=== PATIENT | female | born 1960 | race Caucasian/White ===

== ENCOUNTER → 2020-10-16 13:41 | Outpatient (BNVA) | payer OTHER, SELFPAY | PROVIDERS: PCP Internal Medicine; Referring Provider Internal Medicine; Visit Provider Nurse Practitioner Family | DX: Z12.11 Encounter for screening for malignant neoplasm of colon (principal); D12.6 Benign neoplasm of colon, unspecified | CPT/HCPCS: Q3014 ==

== ENCOUNTER 2020-12-03 07:45 | Outpatient (REF) | payer OTHER, SELFPAY ==
[2020-12-03 11:36] LABS: Alanine Aminotransferase 9 U/L (0-31); Anion Gap 12 (12-20); Aspartate Amino Transferase 15 U/L (5-31); Blood Urea Nitrogen 17 mg/dL (9-16); Calcium 9.3 mg/dL (8.4-10.2); Carbon Dioxide 32 mmol/L (22-29); Chloride 103 mmol/L (96-108); Cholesterol 194 mg/dL; Estimated Glomerular Filt Rate > 60; Glucose Fasting 103 mg/dL (60-99); HDL Cholesterol 49 mg/dL; Hemoglobin 12.3 g/dl (12.0-16.0); LDL Cholesterol Calculated 126 mg/dl; Mean Corpuscular HGB Conc 30.8 g/dl (31.0-35.0); Mean Corpuscular Hemoglobin 27.2 pg (27.0-33.0); Mean Corpuscular Volume 88.3 fL (80-98); Mean Platelet Volume 10.8 fL (9.4-12.3); Platelet Count 219 X10*3/uL (160-400); Potassium 4.7 mmol/L (3.3-5.1); Red Blood Count 4.53 X10*6/uL (4.20-5.50); Red Cell Distribution Width 14.2 % (11.0-16.0); Sodium 142 mmol/L (135-145); Triglycerides 99 mg/dL; White Blood Count 5.3 X10*3/uL (4.8-10.8)
[2020-12-03 11:57] LABS: TSH reflex Free T4 1.47 uIU/mL (0.32-4.0)
== END 2020-12-03 07:46 | disposition home or self-care (01) ==
LOC: HO.HMGCLDS 07:45
PROVIDERS: Nurse Practitioner Family; PCP Internal Medicine; Visit Provider Internal Medicine
DX: E66.01 Morbid (severe) obesity due to excess calories (principal); I10 Essential (primary) hypertension; Z78.0 Asymptomatic menopausal state
CPT/HCPCS: 36415; 80048; 80061; 82306; 84443; 84450; 84460; 85027

== ENCOUNTER 2020-12-16 08:08 | Day surgery (SDC) | payer OTHER, SELFPAY ==
[2020-12-09 13:19] VITALS: BMI 54.8
[2020-12-16 08:23] VITALS: BP 187/69; PULSE 102; RESP 20; TEMP 36.6; O2SAT 96
--- NOTE | 2020-12-16 08:48 | P.CONAN_ITS ---
[facility] Active Problems Active Problems: All Active Problems (Updated 08/22/20 @ 08:39 by Diann dukes MD) Postmenopause (Acute) Breast cancer screening by mammogram (Acute) Tubular adenoma of colon (Acute) Morbid obesity due to excess calories (Acute) Mild intermittent asthma in adult without complication (Acute) Essential hypertension (Acute) Past Medical History Medical History Breast cancer screening by mammogram Essential hypertension Mild intermittent asthma in adult without complication Morbid obesity due to excess calories Postmenopause Tubular adenoma of colon Family History Family History Father HTN (hypertension) Diabetes mellitus Mother HTN (hypertension) Anxiety Depression Breast cancer Brother No problems noted. Daughter No problems noted. Daughter No problems noted. Surgical History Surgical History (Updated 12/09/20 @ 13:09 by Wilma Brunson) H/O colonoscopy History of tonsillectomy History of Problems with Anesthesia: No Social History Social History Alcohol intake: current Alcohol intake frequency: holidays/special occasions only Patient Tobacco Use Status: Former Tobacco user Use of substances other than those prescribed or required for medical reasons: No Are you DNR?: No Advance Directives: No Advance Directives Information Provided: Yes Meds Allergies Allergy/AdvReac Type Severity Reaction Status Date / Time No Known Allergies Allergy Verified 10/16/20 14:13 Home Medications Medication Instructions Recorded Confirmed Last Taken Type albuterol sulfate 90 mcg/actuation 2 puff INHALATION Q6H PRN 08/22/20 12/09/20 Unknown History aerosol inhaler (ProAir HFA) aspirin 81 mg tablet,delayed 81 mg PO DAILY 08/22/20 12/09/20 Unknown History release (Adult Low Dose Aspirin) fexofenadine 180 mg tablet 180 mg PO DAILY 08/22/20 12/09/20 Unknown History (Huyen Allergy) lisinopril 10 mg tablet 10 mg PO DAILY 08/22/20 12/09/20 Unknown History Exam Exam Date and Time: December 16, 2020 0848 Height,Weight and Vital Signs: Height 5 ft 2 in Weight 136.134 kg Last Vital Signs Temp 97.9 F 12/16/20 08:23 Pulse 102 H 12/16/20 08:23 Resp 20 12/16/20 08:23 BP 187/69 H 12/16/20 08:23 Pulse Ox 96 12/16/20 08:23 Airway Mallampati Class: III (Full neck) TM Dist: >3cm Neck ROM: Full Heart: RRR Lungs: CTA Assessment and Plan Assessment Anesthesia Assessment: Anesthesia Plan Discussed and Chart Reviewed Final Anesthetic Review History of Problems with Anesthesia: No NPO: Yes ASA Class: III Final Preanesthetic Review: Meds/Allgs Chart Reviewed, Consent Obtained/Reviewed and Anes Risks/Benef Reviewed Patient Risk: Intermediate Procedure Risk: Low Anesthetic Plan Anesthetic Plan: MAC: Disposition: Standard PACU
--- NOTE | 2020-12-16 10:03 | MHC.SHP ---
Pre-Procedural Eval Section A Date of Service: 12/16/20 Section B Chief Complaint: tubular adenoma of colon, Screening Details of Present Illness: pos FH of cRC and polyps Relevant Family History (Specify if Yes): Yes Relevant Social History: None Present Medications: see Short Stay Collaborative assessment Medical History: Significant History (Breast cancer screening by mammogram Essential hypertension Mild intermittent asthma in adult without complication Morbid obesity due to excess calories Postmenopause Tubular adenoma of colon) History of Previous Operations: Relevant previous surgery/procedure and date(s) (tonsil removal) Allergies: Allergies Allergy/AdvReac Type Severity Reaction Status Date / Time No Known Allergies Allergy Verified 10/16/20 14:13 Review of Systems Sugical H&P ROS: Negative: Constitution, Cardiovascular, Respiratory, Neurological, Psychiatric, Hem-Onc, Allergic/Immunologic, Gastrointestinal, Genitourinary, Musculoskeletal, Integumentary, Endocrine and Eyes/Ears/Nose/Throat Exam Surgical H&P Exam: Normal: HEENT, Normal: Heart, Normal: Lungs, Normal: Extremities, Normal: Abdomen, Normal: Skin and Normal: Neurological Plan Diagnosis/Plan: Unchanged I have reviewed the history and physical and performed a pertinent physical examination on my patient. No changes have occurred unless specified.
--- NOTE | 2020-12-16 10:04 | PM.OP ---
Brief Operative Note Date of Service: 12/16/20 Pre-op diagnosis: hx of polyps Post-op diagnosis: same Procedure: see op note Surgeon: Bang West MD Anesthesia: MAC Was an Pig Casting Machine Operator used for this Procedure?: No Estimated blood loss (mL): 0 Condition: stable Disposition: PACU
--- NOTE | 2020-12-16 10:05 | W.PM.OPN ---
Operative Note Operative Note Date of Service: 12/16/20 Narrative: Operative Information Procedure Description: Colonoscopy COLONOSCOPY Instrument: Olympus variable stiffness adult scope 190L Colonoscopy Monitoring: Vital signs and clinical assessment, continuous EKG monitoring, Pulse oximetry, Carbon Dioxide monitoring and blood pressure monitoring were done throughout the procedure. Colon withdrawal time was 10 minutes. Procedure: The patient was placed in the left lateral decubitis position and pre-procedure medications were administered. After a digital rectal examination of the ano-rectum, the video colonoscope was inserted into the rectum and advanced through the colon to the cecum/TI. The colonoscope was slowly withdrawn in a retrograde panoramic fashion and the colon mucosa was carefully examined including a retroflexed view of the rectum. Findings and interventions are described below. Procedure Difficulty:easy Findings: Terminal Ileum-normal Cecum: 10 mm sessile polyp removed with cold snare Ascending Colon: normal Transverse Colon -normal Descending Colon: x 1 sessile polyp 10 mm removed with cold snare Sigmoid Colon: moderate diverticulosis, Rectum: Retroflexion with small internal hemorrhoids, grade I Anorectum - normal Colon preparation: Commodore Bowel Preparation Scale Right colon; 2 Transverse colon: 3 Left colon; 2 (0 = Unprepared colon segment with mucosa not seen due to solid stool that cannot be cleared. 1 = Portion of mucosa of the colon segment seen, but other areas of the colon segment not well seen due to staining, residual stool and/or opaque liquid. 2 = Minor amount of residual staining, small fragments of stool and/or opaque liquid, but mucosa of colon segment seen well. 3 = Entire mucosa of colon segment seen well with no residual staining, small fragments of stool or opaque liquid) Impression and Post Procedure Diagnosis: polyps internal hemorrhoids diverticular disease Plan: High fiber diet leaflet Avoid straining at stool, epsom salts and sitz bath, anusol supps or cream Repeat Colonoscopy in 5 years or earlier if clinically indicated Above findings were reviewed with the patient and relevant handouts were provided if indicated.
[2020-12-16 10:40] VITALS: BP 124/75; PULSE 92; RESP 16; TEMP 36; O2SAT 98
[2020-12-16 10:55] VITALS: BP 145/93; PULSE 75; RESP 20; TEMP 36.3; O2SAT 97
== END 2020-12-16 11:42 | disposition home or self-care (01) ==
PROVIDERS: PCP Internal Medicine; Visit Provider Internal Medicine Gastroenterology
PROC: 0DJD8ZZ Inspection of Lower Intestinal Tract, Via Natural or Artificial Opening Endoscopic (ICD-10-PCS; CPT 45378; principal; 2020-12-16 09:20)
DX: Z12.11 Encounter for screening for malignant neoplasm of colon (principal); Z86.010 Personal history of colon polyps; D12.0 Benign neoplasm of cecum; K63.5 Polyp of colon; K57.30 Diverticulosis of large intestine without perforation or abscess without bleeding; K64.0 First degree hemorrhoids; I10 Essential (primary) hypertension; J45.20 Mild intermittent asthma, uncomplicated; E66.01 Morbid (severe) obesity due to excess calories; Z87.891 Personal history of nicotine dependence; Z79.82 Long term (current) use of aspirin; Z79.899 Other long term (current) drug therapy
CPT/HCPCS: 45385; 88305

== ENCOUNTER → 2021-01-01 13:23 | Outpatient (BNVA) | payer OTHER, SELFPAY | PROVIDERS: PCP Internal Medicine; Visit Provider Nurse Practitioner Family ==

== ENCOUNTER → 2021-01-08 09:02 | Outpatient (BNVA) | payer OTHER, SELFPAY | PROVIDERS: PCP Internal Medicine; Visit Provider Dietitian, Registered | DX: E66.01 Morbid (severe) obesity due to excess calories (principal); I10 Essential (primary) hypertension | CPT/HCPCS: 97802 ==

== ENCOUNTER → 2021-02-19 09:20 | Outpatient (BNVA) | payer OTHER, SELFPAY | PROVIDERS: PCP Internal Medicine; Visit Provider Dietitian, Registered | DX: E66.01 Morbid (severe) obesity due to excess calories (principal); I10 Essential (primary) hypertension | CPT/HCPCS: 97803 ==

== ENCOUNTER → 2021-04-02 09:21 | Outpatient (BNVA) | payer OTHER, SELFPAY | PROVIDERS: PCP Internal Medicine; Visit Provider Dietitian, Registered | DX: E66.01 Morbid (severe) obesity due to excess calories (principal); I10 Essential (primary) hypertension | CPT/HCPCS: 97803 ==

== ENCOUNTER 2022-01-16 07:33 | Outpatient (REF) | payer OTHER, SELFPAY ==
[2022-01-16 12:01] LABS: Alanine Aminotransferase 14 U/L (0-31); Anion Gap 17 (12-20); Aspartate Amino Transferase 18 U/L (5-31); Blood Urea Nitrogen 17 mg/dL (9-16); Calcium 8.7 mg/dL (8.4-10.2); Carbon Dioxide 27 mmol/L (22-29); Chloride 103 mmol/L (96-108); Cholesterol 186 mg/dL; Estimated Glomerular Filt Rate > 60; Glucose Fasting 102 mg/dL (60-99); HDL Cholesterol 50 mg/dL; LDL Cholesterol Calculated 123 mg/dl; Potassium 4.5 mmol/L (3.3-5.1); Sodium 142 mmol/L (135-145); Triglycerides 69 mg/dL
[2022-01-16 12:07] LABS: TSH reflex Free T4 2.04 uIU/mL (0.32-4.0); Vitamin D 25-OH Total 20.8 ng/mL (>30)
== END 2022-01-16 07:34 | disposition home or self-care (01) ==
LOC: HO.HMGCLDS 07:33
PROVIDERS: PCP Internal Medicine; Visit Provider Internal Medicine
DX: Z00.01 Encounter for general adult medical examination with abnormal findings (principal); I10 Essential (primary) hypertension; J45.20 Mild intermittent asthma, uncomplicated; Z78.0 Asymptomatic menopausal state
CPT/HCPCS: 36415; 80048; 80061; 82306; 84443; 84450; 84460

== ENCOUNTER 2022-10-16 08:36 | Outpatient (REF) | payer OTHER, SELFPAY ==
[2022-10-16 11:24] LABS: MANUAL DIFF FLAG NO
[2022-10-16 11:59] LABS: Basophils Percent Auto 0.8 % (0-2); Eosinophils Absolute Auto 0.3 X10*3/uL (0.0-0.4); Eosinophils Percent Auto 5.9 % (0-4); Hematocrit 41.3 % (37.0-47.0); Hemoglobin 12.8 g/dl (12.0-16.0); Imm Gran Abs Auto 0.03 X10*3/uL (0.00-0.03); Imm Gran Pct Auto 0.6 % (0.0-0.4); Lymphocytes Percent Auto 19.1 % (20-40); Mean Corpuscular Hemoglobin 27.2 pg (27.0-33.0); Mean Corpuscular Volume 87.7 fL (80.0-98.0); Mean Platelet Volume 11.1 fL (9.4-12.3); Monocytes Absolute Auto 0.5 X10*3/uL (0.1-1.2); Monocytes Percent Auto 9.1 % (2-11); Neutrophils Absolute Auto 3.3 x10*3/uL (2.0-8.3); Neutrophils Percent Auto 64.5 % (45-73); Platelet Count 235 X10*3/uL (160-400); Red Blood Count 4.71 X10*6/uL (4.20-5.50); Red Cell Distribution Width 14.3 % (11.0-16.0); White Blood Count 5.1 X10*3/uL (4.8-10.8)
[2022-10-16 12:30] LABS: Alanine Aminotransferase 13 U/L (0-31); Anion Gap 15 (12-20); Aspartate Amino Transferase 25 U/L (5-31); Blood Urea Nitrogen 20 mg/dL (9-16); Calcium 9.3 mg/dL (8.4-10.2); Carbon Dioxide 29 mmol/L (22-29); Chloride 104 mmol/L (96-108); Cholesterol 213 mg/dL; Estimated Glomerular Filt Rate > 60; Glucose Fasting 102 mg/dL (60-99); HDL Cholesterol 51 mg/dL; LDL Cholesterol Calculated 142 mg/dl; Sodium 143 mmol/L (135-145); Triglycerides 101 mg/dL
[2022-10-16 12:42] LABS: TSH reflex Free T4 1.11 uIU/mL (0.32-4.0); Vitamin D 25-OH Total 18.6 ng/mL (>30)
== END 2022-10-16 08:37 | disposition home or self-care (01) ==
LOC: HO.HMGCLDS 08:36
PROVIDERS: PCP Internal Medicine; Visit Provider Internal Medicine
DX: Z00.01 Encounter for general adult medical examination with abnormal findings (principal); D12.6 Benign neoplasm of colon, unspecified; E66.01 Morbid (severe) obesity due to excess calories; I10 Essential (primary) hypertension; J45.20 Mild intermittent asthma, uncomplicated; Z78.0 Asymptomatic menopausal state
CPT/HCPCS: 36415; 80048; 80061; 82306; 84443; 84450; 84460; 85025

== ENCOUNTER 2023-01-04 12:59 | Outpatient (REF) | payer OTHER, SELFPAY | END 2023-01-04 13:00 | disposition home or self-care (01) | LOC: HO.SH 12:59 | PROVIDERS: Visit Provider Internal Medicine | DX: H90.3 Sensorineural hearing loss, bilateral (principal) | CPT/HCPCS: 92557; 92567 ==

== ENCOUNTER 2023-05-03 08:16 | Outpatient (REF) | payer OTHER, SELFPAY ==
[2023-05-03 12:26] LABS: Alanine Aminotransferase 13 U/L (0-31); Anion Gap 14 (12-20); Aspartate Amino Transferase 22 U/L (5-31); Blood Urea Nitrogen 13 mg/dL (9-16); Calcium 9.2 mg/dL (8.4-10.2); Carbon Dioxide 29 mmol/L (22-29); Chloride 101 mmol/L (96-108); Cholesterol 191 mg/dL (<200); Estimated Glomerular Filt Rate > 60; Glucose Fasting 101 mg/dL (60-99); HDL Cholesterol 45 mg/dL (>40); LDL Cholesterol Calculated 129 mg/dL (<100); Potassium 4.4 mmol/L (3.3-5.1); Sodium 140 mmol/L (135-145); Triglycerides 89 mg/dL (<150)
[2023-05-03 12:32] LABS: Vitamin D 25-OH Total 23.5 ng/mL (>30)
== END 2023-05-03 08:17 | disposition home or self-care (01) ==
LOC: HO.HMGCLDS 08:16
PROVIDERS: PCP Internal Medicine; Visit Provider Internal Medicine
DX: Z13.220 Encounter for screening for lipoid disorders (principal); E66.01 Morbid (severe) obesity due to excess calories; D12.6 Benign neoplasm of colon, unspecified; I10 Essential (primary) hypertension; J45.20 Mild intermittent asthma, uncomplicated; Z78.0 Asymptomatic menopausal state
CPT/HCPCS: 36415; 80048; 80061; 82306; 84450; 84460

== ENCOUNTER 2023-05-04 10:28 | Outpatient (AMB) | payer OTHER, SELFPAY ==
--- NOTE | 2023-05-04 10:48 | A.OFFPC_ITS ---
Vital Signs 05/04/23 10:49 Height 5 ft 2 in Weight 294 lb BMI 53.8 BP 138/82 Blood Pressure Location Rt brachial Position Sitting Pulse 77 Pulse Source Pulse Oximeter Pulse Oximetry (%) 94 Oxygen Delivery Method Room Air Intake Visit Reasons: 6m follow up Intake Note: Pt is here to follow up for her lab results Allergies No Known Allergies Allergy (Verified 05/04/23 11:20) Medication List - Last Reconciled 05/04/23 by Diann Peñaloza MD albuterol sulfate 90 mcg/actuation (ProAir HFA) 2 puffs inhalation Q6H PRN aspirin (Adult Low Dose Aspirin) 81 mg PO DAILY cholecalciferol (vitamin D3) 1,250 mcg PO QWEEK 3 months epinephrine (EpiPen 2-Roby) 0.3 mg (0.3 mL) IM Q10M PRN 30 days fexofenadine (Huyen Allergy) 180 mg PO DAILY hydroxyzine HCl 10 mg PO BID PRN lisinopril-hydrochlorothiazide 20-12.5 mg 1 tab PO DAILY montelukast 10 mg PO DAILY [id number] carb-vit K 18 mg iron-400 mcg-500 mg 1 tab PO BEDTIME selenium sulfide 2.25% 1 appl topical 3XW Tobacco use date assessed: 05/04/23 Dental Screening Dental Screen Date: 05/04/23 Did you have a dental visit in the last 12 months?: No Did you have a dental problem in the last 6 months where you did not have access to dental care?: No Was dental information given to patient?: No HPI 6m follow up HPI Details 62-year-old lady with mild intermittent asthma, hypertension, obesity and prediabetes, here today for follow-up. She has been feeling well, no complaints at present time. Has been trying to follow recommended diet but unable to get much exercise done due to joint pains. Recent fasting labs showed low vitamin-D level, but lipids are within normal limits and fasting sugar is mildly elevated. [facility] Medical History Impaired fasting glucose Impaired hearing Diverticulosis Postmenopause Tubular adenoma of colon Morbid obesity due to excess calories Mild intermittent asthma in adult without complication Essential hypertension Surgical History H/O colonoscopy History of tonsillectomy Family History Father HTN (hypertension) Diabetes mellitus Mental health disorder Mother HTN (hypertension) Anxiety Depression Breast cancer Mental health disorder Brother Mental health disorder Daughter Mental health disorder Daughter Mental health disorder Social History Housing: House Alcohol intake: current Alcohol intake frequency: holidays/special occasions only Patient Tobacco Use Status: Former Tobacco user e-Cigarette/Vaping Use: Never Used service: No Current occupational status: employed Cognitive needs: No Hearing needs: No Vision needs: Yes Questionnaire Thrive Questionnaire Date Thrive assessed: 10/02/22 AUDIT C Alcohol Use Questionnaire (AUDIT-C) 1. How often do you have a drink containing alcohol?: Never Total Score: 0 WAGNER-7 AMB Questionnaire WAGNER-7 Date WAGNER - 7 assessed: 10/02/22 Source: Developed by Drs. Peter French, Jackie Mars, Kyaw Pemberton and colleagues, with an educational herber from [employer] Review of Systems Const Denies body aches, Denies fever(s) and Denies weakness Eyes Details: goes to [facility] Denies change in vision and Denies eye discharge ENT Reports no additional complaints and Reports hearing loss Card Denies chest pain, Denies lightheadedness and Denies dyspnea Resp Denies chest congestion, Denies cough and Denies dyspnea GI Denies abdominal pain, Denies change in bowel habits and Denies heartburn Reports no additional complaints Musc Reports arthralgias (Mainly in her knees with walking for long distances) and Reports stiffness Skin/Breast Denies breast swelling, Denies breast skin changes, Denies breast pain, Denies breast mass, Denies dry skin and Denies rash Neuro Denies Sensory deficit (Neuro) and Denies weakness Psych Reports no additional complaints Endo Reports no additional complaints Nawaf/Lymph Reports no additional complaints Aller/Immun Reports no additional complaints Physical exam (Primary Care) Vital Signs: Last Vital Signs Pulse 77 05/04/23 10:49 BP 138/82 05/04/23 10:49 Pulse Ox 94 05/04/23 10:49 Oxygen Delivery Method Room Air 05/04/23 10:49 BMI result Body Mass Index 53.8 BMI Assessment/Plan discussion: High BMI High, discussed plan: lifestyle, weight reduction, dietary and physical activity Tobacco/Smoking Status: Tobacco use Status Tobacco use date assessed 05/04/23 05/04/23 10:55 Patient Tobacco Use Status Former Tobacco user 05/04/23 10:48 e-Cigarette/Vaping Use Never Used 05/04/23 10:48 Thrive Assessment: Date of Thrive Assessment Date Thrive assessed 10/02/22 05/04/23 10:48 Const General: cooperative, no acute distress and alert Nutritional Appearance: obese morbidly obese Orientation/consciousness: patient oriented x3 Limitations: no limitations HENMT Head: Yes normocephalic Ears: external ears normal General nose exam: Normal external nose present Face and sinus: Yes face symmetric Mouth: Normal oral and palatal mucosa present and moist mucous membranes Eyes Conjunctivae: conjunctivae normal Sclerae: sclerae normal Pupils: Equal, round and reactive pupils present EOM: EOMs intact bilaterally Neck Neck: Yes full ROM and Yes no lymphadenopathy Thyroid: Thyroid normal Carotids: normal carotid upstroke Lymphatic: no lymphadenopathy noted Resp Effort & Inspection: normal respiratory effort and able to speak in complete sentences Auscultation: clear to auscultation bilaterally Cardio Jugular venous distension: no JVD Rate: regular rate Rhythm: regular rhythm Heart sounds: S1 normal heart sound present and S2 normal heart sound present GI Inspection: Yes normal to inspection Palpation (GI): Soft to palpation Auscultation: normal bowel sounds Back/Spine/Pelvis Back: No back tenderness Neuro General: patient oriented x3, gait normal, moves all extremities, no focal motor deficits and CN's II-XI intact bilaterally Cranial nerves: Yes Equal, round and reactive pupils present Cognition (Neuro): normal cognition Gait exam (Neuro): Normal gait present Motor exam (neuro): 5/5 motor strength present throughout Sensory Exam: No Sensory deficit (Neuro) Extrem General: Yes normal to inspection, Yes full ROM and Yes normal gait Results Reviewed Results Reviewed: Name: Brooke Avila Age/Sex: 62/F : 1960 Unit#: [id number] Attend Dr: Diann Peñaloza MD Re05/03/23 Status: DEP REF Location: [facility] Disch: SPEC : [id number] FELIX: 05/03/23 STATUS: COMP REQ : [id number] RECD: 05/03/[address]: Diann Peñaloza MD COMP: 05/03/23 ENTERED: 05/03/23 [facility] DR: ORDERED: Met Prof Fast, AST, ALT, Lipid Panel, Vitamin D 25-OH Test Result Flag Reference Sodium 140 135-145 mmol/L Potassium 4.4 3.3-5.1 mmol/L CL 101 96-108 mmol/L CO2 29 22-29 mmol/L Gap 14 12-20 BUN 13 9-16 mg/dL Creat 0.77 0.5-1.4 mg/dL EGFR > 60 NOTE: For -Filipino individuals, multiply the result by 1.210. Chronic Kidney Disease: Estimated GFR < 60 mL/min/1.73m2 Severe Kidney Disease: Estimated GFR < 15 mL/min/1.73m2 FBS 101 H 60-99 mg/dL A fasting glucose from 100-125 mg/dl is considered impaired (pre-diabetes). CA 9.2 8.4-10.2 mg/dL AST (GOT) 22 5-31 U/L ALT (GPT) 13 0-31 U/L Triglyceride 89 <150 mg/dL Desirable Triglyceride: less than 150 mg/dL Borderline High Triglyceride 150-199 mg/dL High Triglyceride: 200-499 mg/dL Very High Triglyceride: greater than or equal to 5OO mg/dL Cholesterol 191 <200 mg/dL Desirable Cholesterol: less than 200 mg/dL Borderline High Cholesterol: 200-239 mg/dL High Cholesterol: greater than 239 mg/dL LDL Calculated 129 H <100 mg/dL Desirable LDL: less than 100 mg/dL Near Optimal/Above Optimal LDL: 110-129 mg/dL Borderline High LDL: 130-159 mg/dL High LDL: 160-189 mg/dL Very High LDL: greater than or equal to 190 mg/dL HDL 45 >40 mg/dL Desirable HDL: greater than 40 mg/dL Note: This HDL assay may give artificially low results in patients with liver disease. Vit D 25-OH Tot 23.5 L >30 ng/mL Health Based Reference Values* < 20 ng/mL Deficient 20-30 ng/mL Insufficient > 30 ng/mL Sufficient Assessment and Plan Assessment & Plan (1) Vitamin D deficiency: Code(s): E55.9 - Vitamin D deficiency, unspecified Plan: Prescription sent for cholecalciferol 59994 units per capsule once a week for the next 3 months, once finished taking the prescription, to continue taking [id number] vitamin-D 3 at 2000 units daily (2) Morbid obesity due to excess calories: Code(s): E66.01 - Morbid (severe) obesity due to excess calories Plan: Recommended focusing on improving your health instead of dieting. : Eat Mediterranean diet, limit foods high in fat, sugar, and calories, eat slowly, pay attention to portion sizes, plan your meals ahead of time, start regular physical activity 150 minutes of moderate intensity exercise or 90 minutes/week of vigorous exercise and increase water intake. (3) Mild intermittent asthma in adult without complication: Code(s): J45.20 - Mild intermittent asthma, uncomplicated Plan: Uses albuterol inhaler as needed for episodes of bronchospasm and wheezing. Declined getting pneumo coccal vaccine at this time, up-to-date with her flu shot in [facility] booster (4) Essential hypertension: Code(s): I10 - Essential (primary) hypertension Plan: Blood pressure at goal of less than 130/80. Continue with current medication. Reinforced importance of following a low sodium diet, getting regular exercise, and lowering stress levels. Orders: Orders Alanine Aminotransferase 09/15/23 Z78.0 - Asymptomatic menopausal state, E66.01 - Morbid (severe) obesity due to excess calories, J45.20 - Mild intermittent asthma, uncomplicated, R73.01 - Impaired fasting glucose, I10 - Essential (primary) hypertension, Z13.220 - Encounter for screening for lipoid disorders Basic Metabolic Panel Fasting 09/15/23 Z78.0 - Asymptomatic menopausal state, E66.01 - Morbid (severe) obesity due to excess calories, J45.20 - Mild intermittent asthma, uncomplicated, R73.01 - Impaired fasting glucose, I10 - Essential (primary) hypertension, Z13.220 - Encounter for screening for lipoid disorders Hemoglobin A1c 09/15/23 Z78.0 - Asymptomatic menopausal state, E66.01 - Morbid (severe) obesity due to excess calories, J45.20 - Mild intermittent asthma, uncomplicated, R73.01 - Impaired fasting glucose, I10 - Essential (primary) hypertension, Z13.220 - Encounter for screening for lipoid disorders Aspartate Amino Transferase 09/15/23 Z78.0 - Asymptomatic menopausal state, E66.01 - Morbid (severe) obesity due to excess calories, J45.20 - Mild intermittent asthma, uncomplicated, R73.01 - Impaired fasting glucose, I10 - Essential (primary) hypertension, Z13.220 - Encounter for screening for lipoid disorders Lipid Panel 09/15/23 Z78.0 - Asymptomatic menopausal state, E66.01 - Morbid (severe) obesity due to excess calories, J45.20 - Mild intermittent asthma, uncomplicated, R73.01 - Impaired fasting glucose, I10 - Essential (primary) hypertension, Z13.220 - Encounter for screening for lipoid disorders Vitamin D 25-OH Total 09/15/23 Z78.0 - Asymptomatic menopausal state, E66.01 - Morbid (severe) obesity due to excess calories, J45.20 - Mild intermittent asthma, uncomplicated, R73.01 - Impaired fasting glucose, I10 - Essential (primary) hypertension, Z13.220 - Encounter for screening for lipoid disorders Medications: New cholecalciferol (vitamin D3) 1,250 mcg PO QWEEK 13 caps 0RF 3 months E55.9 - Vitamin D deficiency, unspecified Refilled epinephrine (EpiPen 2-Roby) for 2 doses 0.3 mg (0.3 mL) IM Q10M PRN 1 ea 0RF anaphylaxis 30 days Coding Level of Care Code Est Pt Level 4 (47961) Diagnoses Vitamin D deficiency E55.9 Morbid obesity due to excess calories E66.01 Mild intermittent asthma in adult without complication J45.20 Essential hypertension I10
[2023-05-04 10:49] VITALS: BP 138/82; PULSE 77; O2SAT 94; BMI 53.8
== END 2023-05-04 12:08 | disposition home or self-care (01) ==
PROVIDERS: PCP Internal Medicine; Visit Provider Internal Medicine
DX: E55.9 Vitamin D deficiency, unspecified (principal); E66.01 Morbid (severe) obesity due to excess calories; Z68.43 Body mass index [BMI] 50.0-59.9, adult; J45.20 Mild intermittent asthma, uncomplicated; I10 Essential (primary) hypertension
CPT/HCPCS: 99214

== ENCOUNTER 2024-09-27 09:36 | Outpatient (REF) | payer BC, SELFPAY ==
[2024-09-27 14:12] LABS: Estimated Average Glucose 117 mg/dL; Hemoglobin A1C 127.3427 umol/L; Hemoglobin A1c % 5.7 % (<6.0); Total Hemoglobin (HGBA1C) 3260.2479 umol/L
[2024-09-27 14:26] LABS: Alanine Aminotransferase 11 U/L (0-31); Anion Gap 12 (12-20); Aspartate Amino Transferase 26 U/L (5-31); Blood Urea Nitrogen 28 mg/dL (9-16); Calcium 9.3 mg/dL (8.4-10.2); Carbon Dioxide 31 mmol/L (22-29); Chloride 102 mmol/L (96-108); Cholesterol 191 mg/dL (<200); Estimated Glomerular Filt Rate > 60; Glucose Fasting 98 mg/dL (60-99); HDL Cholesterol 49 mg/dL (>40); LDL Cholesterol Calculated 126 mg/dL (<100); Sodium 141 mmol/L (135-145); Triglycerides 81 mg/dL (<150)
[2024-09-27 14:29] LABS: Vitamin D 25-OH Total 66.5 ng/mL (>30)
== END 2024-09-27 09:37 | disposition home or self-care (01) ==
LOC: HO.HMGCLDS 09:36
PROVIDERS: PCP Internal Medicine; Visit Provider Internal Medicine
DX: Z00.01 Encounter for general adult medical examination with abnormal findings (principal); R73.01 Impaired fasting glucose; J45.20 Mild intermittent asthma, uncomplicated; I10 Essential (primary) hypertension; Z86.0101 Personal history of adenomatous and serrated colon polyps; Z78.0 Asymptomatic menopausal state; Z71.89 Other specified counseling; E66.01 Morbid (severe) obesity due to excess calories; D12.6 Benign neoplasm of colon, unspecified
CPT/HCPCS: 36415; 80048; 80061; 82306; 83036; 84450; 84460; 96127; 99397

== ENCOUNTER 2024-09-27 09:59 | Outpatient (AMB) | payer MEDICARE, SELFPAY ==
--- NOTE | 2024-09-27 10:52 | A.OFFPC_ITS ---
Vital Signs 09/27/24 10:55 Height 5 ft 2 in Weight 296 lb BMI 54.1 BP 110/70 Blood Pressure Location Lt brachial Position Sitting Respiration 15 Pulse 88 Pulse Source Pulse Oximeter Temp 97.7 F Temp Source Oral Pulse Oximetry (%) 94 Oxygen Delivery Method Room Air Intake Visit Reasons: Annual PE~ R/S from 07/31 provider out of office Intake Note: Pt is here today for her PE Allergies No Known Allergies Allergy (Verified 09/27/24 11:20) Medication List - Last Reconciled 09/27/24 by Diann Peñaloza MD aspirin (Adult Low Dose Aspirin) 81 mg PO DAILY epinephrine (EpiPen 2-Roby) 0.3 mg (0.3 mL) IM Q10M PRN 30 days fexofenadine (Huyen Allergy) 180 mg PO DAILY lisinopril-hydrochlorothiazide 20-12.5 mg 1 tab PO DAILY montelukast 10 mg PO DAILY Ventolin HFA 90 mcg/actuation (albuterol sulfate) 2 puffs inhalation Q6H PRN NS Tobacco use date assessed: 09/27/24 Fall risk assessment: No Falls in past year Last assessed Fall Risk: 09/27/24 Dental Screening Dental Screen Date: 09/27/24 Did you have a dental visit in the last 12 months?: Yes Did you have a dental problem in the last 6 months where you did not have access to dental care?: No Was dental information given to patient?: Patient has dentist HPI Annual PE~ R/S from 07/31 provider out of office HPI Details - The patient is a 64-year-old female pr esenting for her physical exam. - Dyslipidemia showcased an improvement trend due to weight management. - Essential Hypertension is managed with lisinopril-HCTZ 20-12.5 mg daily with blood pressure stable and controlled. - Allergic Rhinitis is controlled with A llegra and Montelukast. - Occasional joint pain in knee attribut ed to Osteoarthritis but currently not severe.. - History of colon polyp requiring surve illance with colonoscopy every 5 years, seen by Dr West, due again in 2025.. - Has quit smoking several years prior. - Actively working on weight management with exercise and dietary modifications. [facility]LY [facility] Medical History History of adenomatous polyp of colon Impaired fasting glucose Impaired hearing Diverticulosis Postmenopause Morbid obesity due to excess calories Mild intermittent asthma in adult without complication Essential hypertension Surgical History H/O colonoscopy History of tonsillectomy Family History Father HTN (hypertension) Diabetes mellitus Mental health disorder Mother HTN (hypertension) Anxiety Depression Breast cancer Mental health disorder Brother Mental health disorder Daughter Mental health disorder Daughter Mental health disorder Social History Housing: House Alcohol intake: current Alcohol intake frequency: holidays/special occasions only Patient Tobacco Use Status: Former Tobacco user e-Cigarette/Vaping Use: Never Used service: No Current occupational status: employed Cognitive needs: No Hearing needs: No Vision needs: Yes Questionnaire PHQ-9 Over the last 2 weeks, how often have you been bothered by any of the following problems? 1. Little interest or pleasure in doing things: not at all 2. Feeling down, depressed, or hopeless: not at all 3. Trouble falling or staying asleep, or sleeping too much: not at all 4. Feeling tired or having little energy: not at all 5. Poor appetite or overeating: not at all 6. Feeling bad about yourself - or that you are a failure or have let yourself or your family down: not at all 7. Trouble concentrating on things, such as reading the newspaper or watching television: not at all 8. Moving or speaking so slowly that other people could have noticed. Or the opposite - being so fidgety or restless that you have been moving around a lot more than usual: not at all 9. Thoughts that you would be better off or of hurting yourself in some way: not at all Total score: 0 Depression Screening Interpretation: Negative Depression Screening Done: Yes 70581 - PHQ-9 Billing: Yes Source: Developed by Drs. Peter French, Jackie Mars, Kyaw Pemberton and colleagues, with an educational herber from [employer]. Thrive Questionnaire Date Thrive assessed: 09/27/24 I am a: Patient What is your living situation today?: I have a steady place to live Within the past 12 months, did the food you bought not last and you didn't have the money to get more?: Never true Within the past 12 months, did you worry whether your food would run out before you got money to buy more?: Never true Do you have trouble paying for medicines?: No Do you have trouble getting transportation to medical appointments?: No Do you have trouble paying your heating and electricity bill?: No Do you have trouble taking care of your child, family member or friend?: No Do you have trouble with day-to-day activities such as bathing, preparing meals, shopping, managing finances, etc.?: No Are you currently unemployed and looking for a job?: No Are you interested in more education?: No Please select the resources that you would like help with: None Currently or been in a relationship where the following occur: No concerns reported THRIVE Score: 0 AUDIT C Alcohol Use Questionnaire (AUDIT-C) 1. How often do you have a drink containing alcohol?: Monthly or less 2. How many drinks containing alcohol do you have on a typical day when you are drinking?: 1 or 2 3. How often do you have six or more drinks on one occasion?: Never Total Score: 1 WAGNER-7 AMB Questionnaire WAGNER-7 Date WAGNER - 7 assessed: 09/27/24 Feeling nervous, anxious, or on edge: 0 = Not at all Not being able to stop or control worryin = Not at all Worrying too much about different things: 0 = Not at all Trouble relaxin = Not at all Being so restless that it is hard to sit still: 0 = Not at all Becoming easily annoyed or irritable: 0 = Not at all Feeling afraid as if something awful might happen: 0 = Not at all Total WAGNER-7 score (0-4 normal; 5-9 mild; 10-14 moderate; 15-21 severe): 0 Source: Developed by Drs. Peter French, Jackie Mars, Kyaw Pemberton and colleagues, with an educational herber from [email or web address] WAGNER-7 Assessment Billing WAGNER-7 Assessment Tool: WAGNER-7 Assessment 88996 Review of Systems Const Denies body aches and Denies weakness Eyes Details: sees [facility] Denies change in vision and Denies eye discharge ENT Reports no additional complaints and Reports hearing loss Card Denies chest pain, Denies lightheadedness and Denies dyspnea Resp Denies chest congestion, Denies cough and Denies dyspnea GI Denies abdominal pain, Denies change in bowel habits and Denies heartburn Reports no additional complaints Musc Reports arthralgias (Mainly in her knees with walking for long distances) and Reports stiffness Skin/Breast Denies breast swelling, Denies breast skin changes, Denies breast pain, Denies breast mass, Denies dry skin and Denies rash Neuro Denies Sensory deficit (Neuro) and Denies weakness Psych Reports no additional complaints Endo Reports no additional complaints Nawaf/Lymph Reports no additional complaints Aller/Immun Reports no additional complaints Physical exam (Primary Care) Vital Signs: Last Vital Signs Temp 97.7 F 09/27/24 10:55 Pulse 88 09/27/24 10:55 Resp 15 09/27/24 10:55 BP 110/70 09/27/24 10:55 Pulse Ox 94 09/27/24 10:55 Oxygen Delivery Method Room Air 09/27/24 10:55 BMI result Body Mass Index 54.1 BMI Assessment/Plan discussion: High BMI High, discussed plan: lifestyle, weight reduction, dietary and physical activity Tobacco/Smoking Status: Tobacco use Status Tobacco use date assessed 09/27/24 09/27/24 10:53 Patient Tobacco Use Status Former Tobacco user 09/27/24 10:53 e-Cigarette/Vaping Use Never Used 09/27/24 10:53 PHQ-9: PHQ-9 Score PHQ-9: Total score 0 09/27/24 11:31 Depression Screening Interpretation: Negative Thrive Assessment: Date of Thrive Assessment Date Thrive assessed 09/27/24 09/27/24 10:53 Currently or been in a relationship where the following occur: No concerns reported Advance Care Planning discussion: Completed/Scanned Date of discussion: 09/27/24 Who was present: Patient Forms completed: Health Care Proxy Time spent: 16-45 minutes Actual minutes spent: 2 Const General: comfortable, no acute distress, alert and Physically active Nutritional Appearance: obese morbidly obese Orientation/consciousness: patient oriented x3 Limitations: no limitations HENMT Head: Yes normocephalic Ears: external ears normal General nose exam: Normal external nose present Face and sinus: Yes face symmetric Mouth: Normal oral and palatal mucosa present and moist mucous membranes Eyes Conjunctivae: conjunctivae normal Sclerae: sclerae normal Pupils: Equal, round and reactive pupils present EOM: EOMs intact bilaterally Neck Neck: Yes full ROM and Yes no lymphadenopathy Thyroid: Thyroid normal Carotids: normal carotid upstroke Lymphatic: no lymphadenopathy noted Chest Chest palpation & inspection: normal inspection of the chest Breast/axilla palpation: normal palpation of the breasts and normal palpation of the axillae Resp Effort & Inspection: normal respiratory effort and able to speak in complete sentences Auscultation: clear to auscultation bilaterally Cardio Jugular venous distension: no JVD Rate: regular rate Rhythm: regular rhythm Heart sounds: S1 normal heart sound present and S2 normal heart sound present GI Inspection: Yes normal to inspection Palpation (GI): Soft to palpation Auscultation: normal bowel sounds General: Yes deferred Back/Spine/Pelvis Back: No back tenderness Skin Nails: yellow and thickened (Bilateral big toes and 2nd toe on the right) Neuro General: patient oriented x3 Cranial nerves: Yes Equal, round and reactive pupils present Cognition (Neuro): normal cognition Gait exam (Neuro): Normal gait present Motor exam (neuro): 5/5 motor strength present throughout Sensory Exam: No Sensory deficit (Neuro) Extrem General: Yes normal to inspection, Yes full ROM and Yes normal gait Coding Level of Care Code Est Pt Prev Care >65y(14047) Diagnoses Annual visit for general adult medical examination with abnormal findings Z00.01 Impaired fasting glucose R73.01 History of adenomatous polyp of colon Z86.0101 Mild intermittent asthma in adult without complication J45.20 Essential hypertension I10 Advanced directives, counseling/discussion Z71.89 Additional Codes PHQ-9 - 15686 - PHQ-9 Billing: Yes ([id number]) Vital Signs *Quality* - Advance Care Planning discussion: Completed/Scanned ([id number]) Vital Signs *Quality* - Time spent: 16-45 minutes ([id number]) WAGNER-7 Assessment Billing - WAGNER-7 Assessment Tool: WAGNER-7 Assessment 08293 ([id number]) Assessment & Plan Assessment & Plan (1) Annual visit for general adult medical examination with abnormal findings: Code(s): Z00.01 - Encounter for general adult medical examination with abnormal findings Plan: I reviewed the patient's health status focusing on controlling hypertension, dyslipidemia, and allergic rhinitis with current medication regimens, highlighting her commitment to lifestyle changes such as exercise and diet. Recommended Vitamin D3 supplementation when appropriate and underlined the importance of forthcoming mammogram and bone density screening. Scheduled future surveillance colonoscopy and advised on shingles and RSV vaccinations. Emphasized the importance of staying current with preventive health screenings and encouraged her to find a suitable analytics specialist for ongoing care. Discussed follow-up timing for pending scan results to ensure effective and prompt management. Patient was informed and verbally consented to the use of an ambient scribe for clinic note documentation during this visit. (2) Impaired fasting glucose: Code(s): R73.01 - Impaired fasting glucose Category: Medical Plan: Your previous fasting blood sugars were elevated above 100 mg/dL. Impaired glucose metabolism increases the risk for developing diabetes mellitus type 2, as well as heart attack and stroke later on. Lifestyle changes that promotes weight loss, healthy eating habits, and regular exercise are important, and can prevent the progression to diabetes (3) History of adenomatous polyp of colon: Code(s): Z86.0101 - Personal history of adenomatous and serrated colon polyps Category: Medical Plan: Due again for repeat colonoscopy in [address] West (4) Mild intermittent asthma in adult without complication: Code(s): J45.20 - Mild intermittent asthma, uncomplicated Category: Medical Plan: Has Ventolin inhaler which she uses rarely, continued on montelukast (5) Essential hypertension: Code(s): I10 - Essential (primary) hypertension Category: Medical Plan: Blood pressure at goal of less than 130/80. Continue lisinopril HCTZ 20-12.5 mg taken 1 tablet once a day Reinforced importance of following a low sodium diet, getting regular exercise, and lowering stress levels. (6) Advanced directives, counseling/discussion: Code(s): Z71.89 - Other specified counseling Plan: Initiated the conversation about Advanced Directives. Advanced Directives help patients prepare for current and future decisions about their medical treatment and place of care. Discussed with patient that it is a process where a patients current condition and prognosis are reviewed, their wishes for information regarding their illness are elicited, and likely medical dilemmas are presented and options discussed. Healthcare proxy form completed today. The form can be amended as needed, reviewed yearly and make changes as needed Orders: Orders XR DEXA axial skeleton 09/27/24 Z12.31 - Encounter for screening mammogram for malignant neoplasm of breast, Z78.0 - Asymptomatic menopausal state MM tomosynthesis screening BI 09/27/24 Z12.31 - Encounter for screening mammogram for malignant neoplasm of breast, Z78.0 - Asymptomatic menopausal state
[2024-09-27 10:55] VITALS: BP 110/70; PULSE 88; RESP 15; TEMP 36.5; O2SAT 94; BMI 54.1
== END 2024-09-27 11:41 | disposition home or self-care (01) ==
PROVIDERS: PCP Internal Medicine; Visit Provider Internal Medicine
DX: Z00.00 Encounter for general adult medical examination without abnormal findings (principal); R73.01 Impaired fasting glucose; Z86.0101 Personal history of adenomatous and serrated colon polyps; J45.20 Mild intermittent asthma, uncomplicated; I10 Essential (primary) hypertension; Z71.89 Other specified counseling